=== PATIENT | male | born 1960 | race Caucasian/White ===

== ENCOUNTER 2019-01-18 08:14 | Day surgery (SDC) | payer OTHER ==
[~2019-01-18] VITALS: Ht 167.6 cm; Wt 82.9 kg
[~2019-01-18 08:14] MED LIST: CEPHALEXIN500 M1 PO; FLEXERIL 1010 MG/TAB PO; LORTAB 5/500 501 TAB PO; MEDROL 4MG DOSPA4 MG PO; NAPROSYN500 MG PO; NO HOME MEDICATIONS; NORCO 325 MG-51 TAB PO
[2019-01-18 09:06] VITALS: BP 132/89; PULSE 102; TEMP 96.9
[2019-01-18] MEDS ORDERED: LIPITOR 40MG TA40 MG PO (09:17)
[2019-01-18] MEDS ORDERED: INVEGA SUSTENN117 MG IM (09:17)
[2019-01-18 09:30] VITALS: BP 120/94; PULSE 86; TEMP 96.7
[2019-01-18 09:45] VITALS: BP 145/85; PULSE 95
[2019-01-18 10:00] VITALS: BP 128/96; PULSE 78
== END 2019-01-18 10:10 | disposition home or self-care (01) ==
LOC: SDCO 08:14
DX: Z12.11 Encounter for screening for malignant neoplasm of colon (principal); E78.00 Pure hypercholesterolemia, unspecified; F17.210 Nicotine dependence, cigarettes, uncomplicated; F32.9 Major depressive disorder, single episode, unspecified
CPT/HCPCS: J2704; J7030

== ENCOUNTER 2019-09-02 15:26 | Emergency (ER) | payer OTHER ==
[~2019-09-02 15:26] MED LIST changes: +INVEGA SUSTENN117 MG IM; +LIPITOR 40MG TA40 MG PO
== END 2019-09-02 16:43 | disposition left against medical advice (07) ==
LOC: COL.ER 15:26
DX: Z72.9 Problem related to lifestyle, unspecified (principal)

== ENCOUNTER 2024-01-11 11:31 | Emergency (ER) | payer OTHER ==
[~2024-01-11] VITALS: Ht 170.2 cm; Wt 67.6 kg
[2024-01-11 11:31] VITALS: TEMP 98.5
[2024-01-11] MEDS ORDERED: NS 1,000 ML IV ONE ×2 (11:45→13:45)
[2024-01-11] MEDS ORDERED: Naloxone 0.4 MG/ML VIAL IV ONE (11:45)
[2024-01-11 11:48] LABS: ARTERIAL BLD GAS O2 SATURATION 95.7 % (92-100); ARTERIAL BLD GAS TCO2 CT 25.5; ARTERIAL BLOOD GAS BASE EXCESS 0.1 (-2-2); ARTERIAL BLOOD GAS HCO3 24.3 meq/L (22-26); ARTERIAL BLOOD GAS PCO2 38.4 mmHg (35-45); ARTERIAL BLOOD GAS PO2 78.8 mmHg (80-100); ARTERIAL BLOOD GAS pH 7.42 (7.35-7.45)
[2024-01-11 11:53] LABS: COLLECTION METHOD IN
[2024-01-11 11:59] LABS: BASO # 0.1 K/mm3 (0.0-0.2); BASO % 0.4 % (0.0-2.0); EOS # 0.5 K/mm3 (0.0-0.7); EOS % 4.2 % (0.0-4.0); GRAN # 8.2 K/mm3 (1.4-6.5); HEMATOCRIT 38.1 % (42.0-52.0); HEMOGLOBIN 12.7 g/dl (13.5-18.0); LYMPH # 1.6 K/mm3 (1.2-3.4); LYMPH % 14.2 % (20.0-51.0); MEAN CELL VOLUME 92 fl (80.0-100.0); MEAN CORPUSCULAR HEMOGLOBIN 31 pg (27-31); MEAN CORPUSCULAR HGB CONC 33 g/dl (33.0-37.0); MEAN PLATELET VOLUME 9.1 fl (7.4-10.4); MONO # 0.8 K/mm3 (0.1-0.6); MONO % 6.9 % (1.7-9.3); PLATELET COUNT 330 K/mm3 (130-400); RED BLOOD COUNT 4.14 M/mm3 (4.20-5.60)
[2024-01-11 12:02] LABS: PH 5.5 (5.0-8.5); URINE APPEARANCE CLEAR (CLEAR/HAZY); URINE BLOOD NEGATIVE (NEGATIVE); URINE COLOR Dark Yellow (YELLOW); URINE GLUCOSE TRACE (NEGATIVE); URINE KETONE NEGATIVE (NEGATIVE); URINE NITRATE NEGATIVE (NEGATIVE); URINE PROTEIN(semi-quant) NEGATIVE (NEGATIVE)
[2024-01-11 12:04] LABS: TRICYCLIC ANTIDEPRESS URINE NEGATIVE (NEGATIVE)
[2024-01-11 12:27] LABS: ALANINE AMINOTRANSFERASE 17 U/L (0-55); ALBUMIN 2.7 g/dL (3.4-4.8); ALKALINE PHOSPHATASE 74 U/L (40-150); ANION GAP 10 mmol/L (7-16); AST,SGOT 23 U/L (5-34); BILIRUBIN,TOTAL 0.4 mg/dL (0.2-1.2); BLOOD UREA NITROGEN 25 mg/dL (8-26); C-REACTIVE PROTEIN 1.13 mg/dL (0.00-0.50); CALCIUM 8.9 mg/dL (8.4-10.2); CHLORIDE 106 mEq/L (98-107); GLUCOSE 160 mg/dL (70-99); POTASSIUM 4.1 mEq/L (3.5-4.5); SODIUM 137 mEq/L (136-145); TOTAL PROTEIN 6.1 g/dl (6.2-8.1)
[2024-01-11 12:31] LABS: ALCOHOL(ethanol),MEDICAL < 10 mg/dL (0-10); SALICYLATE < 5.0 mg/dL (15.0-30.0)
[2024-01-11 13:35] LABS: TSH w REFLEX 0.732 uIU/mL (0.350-4.940)
[2024-01-11 15:31] VITALS: BP 113/76; PULSE 72
== END 2024-01-11 15:29 | disposition home or self-care (01) ==
LOC: COL.ER 11:31
PROVIDERS: Emergency Medicine
DX: F15.10 Other stimulant abuse, uncomplicated (principal); R41.82 Altered mental status, unspecified
CPT/HCPCS: J2310; J7030

== ENCOUNTER 2024-01-28 18:43 | Emergency (ER) | payer OTHER ==
[~2024-01-28] VITALS: Ht 170.2 cm; Wt 72.7 kg
[2024-01-28] MEDS ORDERED: NS 1,000 ML IV ONE (19:00)
[2024-01-28 19:19] LABS: ALANINE AMINOTRANSFERASE 22 U/L (0-55); ALBUMIN 3.1 g/dL (3.4-4.8); ALKALINE PHOSPHATASE 66 U/L (40-150); ANION GAP 10 mmol/L (7-16); AST,SGOT 35 U/L (5-34); BILIRUBIN,TOTAL 0.8 mg/dL (0.2-1.2); BLOOD UREA NITROGEN 13 mg/dL (8-26); CALCIUM 8.4 mg/dL (8.4-10.2); CHLORIDE 115 mEq/L (98-107); CREATININE, serum 0.82 mg/dL (0.72-1.25); GLUCOSE 100 mg/dL (70-99); POTASSIUM 4.1 mEq/L (3.5-4.5); SODIUM 145 mEq/L (136-145); TOTAL PROTEIN 6.3 g/dl (6.2-8.1)
[2024-01-28 19:22] LABS: ALCOHOL(ethanol),MEDICAL < 10 mg/dL (0-10)
[2024-01-28] MEDS ORDERED: LR 1,000 ML IV ONE (20:15)
[2024-01-28 20:45] LABS: BASO # 0.1 K/mm3 (0.0-0.2); BASO % 0.5 % (0.0-2.0); EOS # 0.3 K/mm3 (0.0-0.7); EOS % 3.2 % (0.0-4.0); GRAN # 6.4 K/mm3 (1.4-6.5); GRAN % 68.9 % (42.2-75.2); HEMATOCRIT 40.3 % (42.0-52.0); LYMPH # 1.8 K/mm3 (1.2-3.4); LYMPH % 18.7 % (20.0-51.0); MEAN CELL VOLUME 93 fl (80.0-100.0); MEAN CORPUSCULAR HEMOGLOBIN 30 pg (27-31); MEAN CORPUSCULAR HGB CONC 32 g/dl (33.0-37.0); MEAN PLATELET VOLUME 9.8 fl (7.4-10.4); MONO # 0.8 K/mm3 (0.1-0.6); MONO % 8.6 % (1.7-9.3); PLATELET COUNT 286 K/mm3 (130-400); RED BLOOD COUNT 4.33 M/mm3 (4.20-5.60)
[2024-01-28 23:38] VITALS: BP 135/72; PULSE 64
== END 2024-01-29 00:32 | disposition home or self-care (01) ==
LOC: COL.ER 18:43
PROVIDERS: Nurse Practitioner
DX: F15.129 Other stimulant abuse with intoxication, unspecified (principal); R53.81 Other malaise; F17.200 Nicotine dependence, unspecified, uncomplicated
CPT/HCPCS: J7030; J7120